=== PATIENT | male | born 1990 | race African-American/Black ===

== ENCOUNTER 2018-05-13 21:02 | Emergency (ER) | payer BC, OTHER ==
--- NOTE | 2018-05-13 21:46 | RAD ---
RIGHT HAND THREE VIEWS: 05/13/18 HISTORY: Injury to the right middle finger, right middle finger pain. FINDINGS/IMPRESSION: No acute fracture or dislocation is identified. POS: [facility]
[2018-05-13] MEDS ORDERED: Ketorolac Tromethamine 30 MG/ML VIAL ONE (21:55)
== END 2018-05-13 22:15 | disposition home or self-care (01) ==
LOC: NAV ERS 21:02
DX: S67.192A Crushing injury of right middle finger, initial encounter (principal); F17.210 Nicotine dependence, cigarettes, uncomplicated; F41.0 Panic disorder [episodic paroxysmal anxiety]; F32.9 Major depressive disorder, single episode, unspecified; W20.8XXA Other cause of strike by thrown, projected or falling object, initial encounter
CPT/HCPCS: 96372; 99001; J1885